=== PATIENT | male | born 1970 | race Caucasian/White ===

== ENCOUNTER 2020-07-02 14:18 | Emergency (ER) | payer SELFPAY ==
[2020-07-02] MEDS ORDERED: CYCLOBENZAPRINE10 MG PO (15:33)
[2020-07-02] MEDS ORDERED: IBUPROFEN800 MG PO (15:33)
== END 2020-07-02 15:45 | disposition home or self-care (01) ==
LOC: ER1 14:18
DX: S40.011A Contusion of right shoulder, initial encounter (principal); S00.93XA Contusion of unspecified part of head, initial encounter; I10 Essential (primary) hypertension; F17.210 Nicotine dependence, cigarettes, uncomplicated; V49.50XA Passenger injured in collision with unspecified motor vehicles in traffic accident, initial encounter; Y92.410 Unspecified street and highway as the place of occurrence of the external cause
CPT/HCPCS: 70450; 71045; 72125; 72170; 73030; 99284